=== PATIENT | male | born 1995 | race Two or more races ===

== ENCOUNTER 2016-12-13 00:40 | Emergency (ER) | payer SELFPAY ==
[2016-12-13 01:37] LABS: BASOPHIL % 0.6 % (0-2); PLATELET COUNT 268 x10^3mcL (130-400); RED CELL DISTRIBUTION WIDTH 12.3 % (11.5-14.5)
[2016-12-13 01:40] LABS: CALCIUM 9.2 mg/dL (8.5-10.1); CARBON DIOXIDE 28.4 mmol/L (21-32); CHLORIDE SERUM 103 mmol/L (98-107); GFR1 > 60 mL/min; GLUCOSE SERUM 137 mg/dL (74-106); POTASSIUM SERUM 3.7 mmol/L (3.5-5.1); SODIUM SERUM 140 mmol/L (136-145)
[2016-12-13 02:18] VITALS: BP 132/68
== END 2016-12-13 02:18 | disposition home or self-care (01) ==
LOC: EDBD 00:40 → ED 00:40
PROVIDERS: Emergency Medicine
DX: F45.8 Other somatoform disorders (principal); T17.220A Food in pharynx causing asphyxiation, initial encounter; X58.XXXA Exposure to other specified factors, initial encounter; Y93.89 Activity, other specified; Y92.89 Other specified places as the place of occurrence of the external cause; Y99.8 Other external cause status
CPT/HCPCS: J2060; Q0092